=== PATIENT | male | born 1970 | race Caucasian/White ===

== ENCOUNTER 2018-01-12 10:14 | Inpatient (IN) ==
--- NOTE | 2018-01-11 22:10 | Discharge Summary ---
<Donita Correia - Last Filed: 01/12/18 14:26> Date of Encounter: 01/12/18 - Discharge Diagnosis (1) Status post total knee replacement, right Priority: Primary Status: Acute (2) Arthritis of knee, right Priority: Primary Status: Acute (3) Chronic pain Priority: Secondary Status: Chronic Comments: Continue chronic pain medication after surgery, RX printed for [facility] only Qualifiers: Chronic pain type: other chronic pain Qualified Code(s): G89.29 - Other chronic pain (4) HLD (hyperlipidemia) Priority: Secondary Status: Chronic Qualifiers: Hyperlipidemia type: mixed hyperlipidemia Qualified Code(s): E78.2 - Mixed hyperlipidemia (5) HTN (hypertension) Priority: Secondary Status: Chronic Qualifiers: Hypertension type: essential hypertension Qualified Code(s): I10 - Essential (primary) hypertension (6) Smoker Status: Chronic (7) Depression Priority: Secondary Status: Chronic Qualifiers: Depression Type: unspecified Qualified Code(s): F32.9 - Major depressive disorder, single episode, unspecified (8) History of DVT (deep vein thrombosis) Priority: Secondary Status: Chronic Comments: Placed on Lovenox. - Hospital Course Hospital course: Mr. Dalal is a 47 year old male - Time Spent with Patient Total time spent providing and/or coordinating discharge services: - Discharge Medications Home Medications: Canagliflozin [Invokana] 300 mg PO DAILY 01/12/18 [History] Enoxaparin [Lovenox] 30 mg SQ Q12HR 10 Days #20 syringe 01/12/18 [Rx] Insulin Glargine,Hum.rec.anlog [Basaglar Kwikpen U-100] 20 unit SQ HS 01/12/18 [History] Lisinopril [Zestril] 5 mg PO DAILY 01/12/18 [History] Metformin HCl [Glucophage] 1,000 mg PO BID 01/12/18 [History] OxyCODONE/APAP 10/325 [Percocet 10/325 MG] 1 tab PO Q6H PRN 01/12/18 [History] Pravastatin Sodium [Pravachol] 80 mg PO QAM 01/12/18 [History] Allergies/Adverse Reactions: Allergy/AdvReac Type Severity Reaction Status Date / Time vancomycin AdvReac Fever Verified 01/12/18 10:36 Primary care physician: PCP NONE - Patient Status Disposition: Home Health Service Condition: Good - Discharge Instructions Instructions: Chronic Hypertension (DC) Follow Up With: Gregory Hung MD [Partnered Physician] - 02/11/18 4:35 pm Donita Correia PAC [Physician Supervisor [place]] - 01/22/18 9:30 am NONE,PCP [Primary Care Provider] - Additional Instructions: Discharge Instructions: Total Knee Replacement Please call [facility] ([phone]), your Primary Care Physician, or report to the Emergency Room if you have any of the following symptoms: Nausea, vomiting, fever greater that 101.5, swelling, chest pain, shortness of breath, increased pain/redness/drainage/odor for your incision site, numbness/tingling, or any other concerning symptoms. ACTIVITY:Weight-bearing as tolerated. You may progress off support (crutches or walker) as tolerated. Incentive Spirometer 10 times an hour. MEDICATIONS: Upon discharge resume your home medications. Take all the medications as prescribed. Take a stool softener if taking narcotic pain medications. Stool softeners are only effective if you drink enough fluids. Drink 6-8 glass of water or fluids a day, unless this is not allowed for another health problem. Despite using stool softeners, if you haven't had a bowel movement in 3 days, please switch to a gentle laxative. Gentle laxatives are sold over the counter. You should have a bowel movement within 24 hours, if not call the office. You will be discharged from the hospital with a prescription for pain medication. You are encouraged to decrease the use of narcotic pain medication as tolerated. Should you require a refill, please call the office. [facility] prescribes narcotic pain medication for only 4-6 weeks after surgery. If you require pain medication beyond this time period, you may be referred to your Primary Care Physician or to the Pain Clinic for further evaluation. Plan ahead for refills on pain medication as many narcotics either need to be picked up at the office or mailed. It is best to call 48-72 hours in advance of needing a prescription refill so you don't run out of medication. To help control the post-operative pain, you may take NSAIDs (Aleve,Advil, Motrin, Ibuprofen, Naprosyn) or Tylenol as prescribed on the bottle in addition to the pain medication. ANTICOAGULATION (blood thinners): Continue your Aspirin, Lovenox or Coumadin as prescribed to help prevent a blood clot in the leg or in the lungs. As long as your incision remains dry and you tolerate the NSAIDs (Aleve, Advil, Motrin, ibuprofen, naprosyn), it is OK to use the NSAIDS while you are taking your anticoagulation medication. Should your incision start to drain, stop the NSAID and contact our office. Common symptoms of blood clot in the legs include: localized pain, swelling, calf tenderness, redness or discoloration of the skin. Blood clot in the lung symptoms include: shortness of breath, rapid pulse, sweating, and chest pain that worsens with deep breathing, coughing up blood, lightheadedness, feelings of anxiety. If you experience any of these symptoms notify your physician immediately, go to the emergency room, or if having trouble breathing, call 911. WOUND CARE: Leave the dressing on for 7 to 10days. You may change the dressing if it becomes saturated greater than 50%. Do not get the dressing wet at anytime. Wash your hands with antibacterial soap, rinse and dry prior to any wound care. If you have elaina the visiting nurse or rehab facility can remove the stapes 10-14 days after surgery and place steri-strips across the wound. Leave the steri-strips in place until they fall off on their won. You may let water from the shower run on top of the steri-strips. If you do not have a visiting nurse or rehab facility, you will need to return to the office at 10-14 days for the elaina to be removed. If you have itching or redness around the dressing call the office. FOLLOW-UP: Please follow up with your surgeon in the orthopedic clinic in 4 weeks from the day of surgery. If you have elaina that need to be removed, you will need to come back to the office in 10-14 days from the day of surgery. <Elvira Recio - Last Filed: 01/14/18 21:21> Orders not resulted at time of discharge: Pending orders 01/12/18 08:12 US anesthesia pain block [US] Routine Date of Encounter: 01/14/18 Time of Encounter: 12:15 - Discharge Diagnosis (1) Status post total knee replacement, right Priority: Primary Status: Acute (2) Arthritis of knee, right Priority: Primary Status: Acute (3) Chronic pain Priority: Secondary Status: Chronic Qualifiers: Chronic pain type: other chronic pain Qualified Code(s): G89.29 - Other chronic pain (4) Depression Priority: Secondary Status: Chronic Qualifiers: Depression Type: unspecified Qualified Code(s): F32.9 - Major depressive disorder, single episode, unspecified (5) HLD (hyperlipidemia) Priority: Secondary Status: Chronic Qualifiers: Hyperlipidemia type: mixed hyperlipidemia Qualified Code(s): E78.2 - Mixed hyperlipidemia (6) HTN (hypertension) Priority: Secondary Status: Chronic Qualifiers: Hypertension type: essential hypertension Qualified Code(s): I10 - Essential (primary) hypertension (7) History of DVT (deep vein thrombosis) Priority: Secondary Status: Chronic (8) Smoker Priority: Secondary Status: Chronic - Hospital Course Hospital course: Mr. Dalal is a 47 year old male is status post right TKR robotic 01/12/18 with hostory of HTN, HLD, depression, tobacco use, chronic pain and history of DVTs. Patient did have cramping to right leg day after surgery but this improved with muscle relaxers and therapy exercises. Due to his severe cramps he was noted to have calf pain. Doppler was negative for DVT. He has been placed on lovenox prophylactically due to history of DVTs. He participated in therapy. He did run a max temp of 100.0 last night but patient states this was during the time his thermostat was found to be set to 82 and he was sweating, temperature normalized once this was fixed. He denies any new cough more than his typical due to smoking and denies chest pain or SOB. Stable for discharge. He will return to his chronic pain medication. Rx was printed to be used only if he went to ECF but therapy did determine he was safe enough to do home therapy so nursing made aware to shred this script. Patient seen at bedside. A&O x 3 Afebrile, vital signs stable. Dressing c/d/i with no visible erythema or drainage. Labs reviewed. H/H - 12.7/37.0 - stable, asymptomatic Pain control: adequate Participating in PT. All questions and concerns addressed. Educated on use of incentive spirometer. Encouraged ambulation and proper hydration. Patient educated on post-operative restrictions and post-operative care. Assessment and plan: Continue with postoperative care Discharge plan: Home health therapy, DC today - Time Spent with Patient Total time spent providing and/or coordinating discharge services: Date of admission: 01/12/18 15:40 Primary care physician: PCP NONE Consults: 01/12/18 15:44 Consult to Orthopedic Navigator [CONS] [CONS] Routine Consult to Physical Therapy [CONS] Routine Comment: Evaluate, develop and impliment POC Reason for Consult: post knee surgery Does patient have active BEDREST order?: No Is patient medically & hemodynamically stable?: Yes Consult to Research Scientist [CONS] Routine Reason for SW Consult: post op joint replacement RT Post Op Consult [CONS] Routine Discharging clinician: Gregory Hung Anticipated date of discharge: 01/14/18 Labs on day of discharge: Labs from last 24 hours 01/14/18 01/14/18 01/14/18 11:33 06:52 05:36 Hgb Hct Sodium 137 Potassium 4.3 Chloride 104 Carbon Dioxide 24 BUN 16 Creatinine 0.56 L Est GFR ( Amer) > 60 Est GFR (Non-Af Amer) > 60 BUN/Creatinine Ratio 29 H Glucose 148 H POC Glucose 140 H 157 H Calculated Osmolality 288 Calcium 8.8 01/14/18 01/13/18 01/13/18 05:36 19:21 16:06 Hgb 12.7 L Hct 37.0 L Sodium Potassium Chloride Carbon Dioxide BUN Creatinine Est GFR ( Amer) Est GFR (Non-Af Amer) BUN/Creatinine Ratio Glucose POC Glucose 201 H 130 H Calculated Osmolality Calcium - Impressions ITS Impressions Knee X-Ray 01/12/18 00:01 IMPRESSION: 1. Right knee arthroplasty. No radiographic evidence of complication. D/ / Wu Real MD / Wu Real MD Interpreting Provider: Wu Real MD - Patient Status Overall status at discharge: patient is back to baseline - Diet and Activity Activity: as per physical therapy Diet: advance to your usual diet
--- NOTE | 2018-01-11 22:17 | Physician Discharge Referral ---
- Transfer Medications Prescriptions: Aspirin Enteric Coated [Aspirin EC] 325 mg PO BID #20 tablet. Oxycodone HCl/Acetaminophen [Endocet 10-325 mg Tablet] 1 each PO Q6H 5 Days #20 tablet Home Medications: Canagliflozin [Invokana] 100 mg PO DAILY 01/19/15 [History] Erythromycin OPTH Oint 1 appl RIGHT EYE ONCE 01/19/15 [History] Lansoprazole [Prevacid] 15 mg PO QAM 01/19/15 [History] Loratadine [Claritin] 10 mg PO DAILY 01/19/15 [History] Metformin [Glucophage] 1,000 mg PO BIDWM 01/19/15 [History] Cyclobenzaprine [Flexeril] 10 mg PO TID #20 tablet 03/17/15 [Rx] Naproxen [Naprosyn] 500 mg PO BID PRN #30 tablet 12/15/15 [Rx] Aspirin Enteric Coated [Aspirin EC] 325 mg PO BID #20 tablet. 01/11/18 [Rx] Oxycodone HCl/Acetaminophen [Endocet 10-325 mg Tablet] 1 each PO Q6H 5 Days #20 tablet 01/11/18 [Rx] Allergies/Adverse Reactions: Allergy/AdvReac Type Severity Reaction Status Date / Time vancomycin Allergy Fever Verified 01/05/18 09:59 - Respiratory Orders Smoking Cessation: Smoking cessation has been advised. For more information, call the [place] Tobacco Quit Line at 9-635-OPHD-NOW. CERTIFICATION: I certify that the transfer of the above named patient to an Extended Care Facility is necessary for the continuing treatment of the diagnosis listed. The above information is true and accurate reflection of patient's current condition. Confidential - Redisclosure prohibited without a patient's written consent.
--- NOTE | 2018-01-12 08:53 | Anesthesia Evaluation PreOp ---
Date of Encounter: 01/12/18 Time of Encounter: 10:41 - Past History Planned Operation: RIGHT TKA - ROBOTIC Cardiac History: Hyperlipidemia Pulmonary History: Smoker (~2 PPD) DIET TECH History: Other (DEPRESSION, ANXIETY) Other Medical History: Diabetes Type II Anesthesia History: No Prior Anesthetic Complications, Past Anesthesia Alcohol Use: none Drug use: none Medications and Allergies Aspirin Enteric Coated [Aspirin EC] 325 mg PO BID #20 tablet.dr 01/11/18 [Rx] Oxycodone HCl/Acetaminophen [Endocet 10-325 mg Tablet] 1 each PO Q6H 5 Days #20 tablet 01/11/18 [Rx] 3 Allergy/AdvReac Type Severity Reaction Status Date / Time vancomycin AdvReac Fever Verified 01/12/18 10:36 - Meds/Allergy Pre-op Review Medications Reviewed: Yes (LISINOPRIL FOR RENAL PROTECTION) Allergies Reviewed: Yes Beta Blockers on Current Med List: No Anesthesia Results - Labs Laboratory Last Values WBC 12.5 K/mcL (4.3-11.1) H 01/05/18 10:10 RBC 5.41 M/mcL (4.19-5.50) 01/05/18 10:10 Hgb 16.9 g/dL (12.9-16.9) 01/05/18 10:10 Hct 51.7 % (37.5-50.1) H 01/05/18 10:10 MCV 95.6 fL (83.0-100.0) 01/05/18 10:10 MCH 31.2 pg (28.0-33.3) 01/05/18 10:10 MCHC 32.7 g/dL (31.6-35.5) 01/05/18 10:10 RDW 13.3 % (11.5-14.5) 01/05/18 10:10 Plt Count 180 K/mcL (140-400) 01/05/18 10:10 MPV 10.9 fL (9.4-12.4) 01/05/18 10:10 Immature Gran % 0.3 % (0-4) 01/05/18 10:10 Seg Neutrophils % 46.9 % 01/05/18 10:10 Lymphocytes % 43.7 % 01/05/18 10:10 Monocytes % 7.4 % 01/05/18 10:10 Eosinophils % 1.5 % 01/05/18 10:10 Basophils % 0.2 % 01/05/18 10:10 Neutrophils # 5.9 K/mcL (1.6-8.9) 01/05/18 10:10 Lymphocytes # 5.5 K/mcL (0.6-4.6) H 01/05/18 10:10 Monocytes # 0.9 K/mcL (0.0-1.3) 01/05/18 10:10 Eosinophils # 0.2 K/mcL (0.0-0.6) 01/05/18 10:10 Basophils # 0.0 K/mcL (0.0-0.2) 01/05/18 10:10 Platelet Estimate Slight Decrease (Normal) L 01/05/18 10:10 APTT 32.6 Seconds (26.0-36.0) 01/05/18 10:10 Sodium 134 mEq/L (136-145) L 01/05/18 10:10 Potassium 4.6 mEq/L (3.5-5.1) 01/05/18 10:10 Chloride 104 mEq/L (98-107) 01/05/18 10:10 Carbon Dioxide 23 mEq/L (23-29) 01/05/18 10:10 BUN 17 mg/dL (6-20) 01/05/18 10:10 Creatinine 0.70 mg/dL (0.70-1.30) 01/05/18 10:10 Est GFR ( Amer) > 60 (> 60) 01/05/18 10:10 Est GFR (Non-Af Amer) > 60 (> 60) 01/05/18 10:10 BUN/Creatinine Ratio 24 (6-26) 01/05/18 10:10 Est Mean Plasma Glucose 186 mg/dl 01/05/18 10:10 Hemoglobin A1c 8.1 % (-5.6) H 01/05/18 10:10 Anesthesia Exam O2 Sat Height 1.7 m Height 1.7 m Weight 83.007 kg Weight 83.007 kg O2 Sat by Pulse Oximetry 98 Vital Signs/O2 Sat/Glucose, Most Recent Temp Pulse Resp BP Pulse Ox 98.4 F 73 18 133/84 98 01/12/18 10:33 01/12/18 10:33 01/12/18 10:33 01/12/18 10:33 01/12/18 10:33 Blood Glucose* 138 NPO (# of Hours): 8 - HEENT Mallampati: I Teeth: Normal Oral Opening: Greater than 3 - Cardiac Rhythm: Regular - Pulmonary Breath Sounds: bilateral Clear Respiratory Effort: Symmetrical Anesthesia Assess/Plan ASA Score: 3 Anesthetic Plan: General, Regional (FOR POST OPERATIVE PAIN) Monitoring Plan: Standard Monitors Recovery Plan: PACU Anes Supervising Prov Stmt: Meetup LIST NOT UPDATED THIS VISIT PATIENT'S CHART AND CURRENT MEDICATIONS REVIEWED CURRENT MEDICATIONS: Basaglar KwikPen 100 UNIT/ML Solution Pen-injector, Si units Subcutaneous once a day Percocet 10-325 MG Tablet, Si tablet as needed Orally every 6 hrs Invokana 300 MG Tablet, Si tablet Orally Once a day Lisinopril 5 MG Tablet, Si tablet Orally Once a day Metformin HCl 1000 MG Tablet, Si tablet with meals Orally Twice a day Pravastatin Sodium 80 MG Tablet 1 tablet Orally Once a day Patient informed and consented. Risks, benefits, and alternatives discussed. Patient wishes to proceed.
[2018-01-12] MEDS ORDERED: Albuterol 2.5 MG/3 ML NEBULIZER ONE (10:35)
[2018-01-12] MEDS ORDERED: CeFAZolin Syr 2,000MG/20 ML 2,000 MG/20 ML SYRINGE IVPB ONE (10:38)
[2018-01-12] MEDS ORDERED: Albuterol 2.5 MG/3 ML NEBULIZER IH ONE (10:38)
[2018-01-12] MEDS ORDERED: *HR* Methadone 10 MG TABLET PO ONE (10:44)
[2018-01-12] MEDS ORDERED: Acetaminophen IV 1,000 MG/100 ML INFUS..BTL IVPB ONE (10:44)
[2018-01-12] MEDS ORDERED: Pregabalin 75 MG CAPSULE PO ONE (10:44)
[2018-01-12] MEDS ORDERED: Ringers Solution, Lactated 1,000 ML IVC SCH ×2 (10:45→15:44)
[2018-01-12] MEDS ORDERED: Lidocaine -MPF 2% 2 ML VIAL ONE (10:58)
[2018-01-12] MEDS ORDERED: *HR* Propofol 200 MG/20 ML VIAL IVP ONE (10:58)
--- NOTE | 2018-01-12 11:19 | History & Physical Report ---
Date of Encounter: 01/12/18 Time of Encounter: 11:19 24 Hour HP Update - Instructions Instructions: If the History and Physical is less than 30 days old and was completed prior to A.M. admission and or procedure and has NOT been updated on calendar day of procedure please complete this update prior to performing procedure. - Update Patient reports changes in Medical Condition: No Changes in examination, assessment, or condition: No Changes in Medication: No Preop tests/diagnostics Reviewed: Yes Surgery Remains Indicated: Yes Consent for Planned Operative Procedure(s) Verified: Yes - Pre-Operative Checklist Preoperative Checklist Indicated: No Prophylactic Antibiotic Ordered: Yes Is VTE Prophylaxis Indicated?: Yes
[2018-01-12] MEDS ORDERED: Ondansetron 4 MG/2 ML VIAL ONE (11:34)
[2018-01-12] MEDS ORDERED: Dexamethasone 4 MG/ML VIAL ONE (11:34)
[2018-01-12] MEDS ORDERED: *HR* FentaNYL (PF) 100 MCG/2 ML VIAL ONE (12:08)
[2018-01-12] MEDS ORDERED: *HR* Midazolam HCl 5 MG/5 ML VIAL IVP ONE (12:08)
[2018-01-12] MEDS ORDERED: ROPIVACAINE HCL/PF 0.5% 30 ML VIAL ONE (12:08)
[2018-01-12] MEDS ORDERED: Bupivacaine/Clonidine Syringe 1 EACH SYRINGE ONE (12:09)
[2018-01-12] MEDS ORDERED: LIDOCAINE 1% PF 2 ML AMPUL ONE (12:18)
[2018-01-12] MEDS ORDERED: Ethanol\\Acetic Acid\\Na Ace\\Ben 1,000 ML IRRIG.SOLN IR ONE (12:24)
--- NOTE | 2018-01-12 12:43 | Anesthesia Procedures ---
Date of Encounter: 01/12/18 Time of Encounter: 12:41 Procedures: Anesthesia - Nerve Block Procedure Date: 01/12/18 Time: 12:41 Allergies/Adv Reactions: vancomycin Pre-op Diagnosis: R knee arthritis Surgical Procedure: R TKA Checklist: Correct Patient Identifier, Correct procedure, History checked Correct side: Right Blood Thinner: No Monitor Applied: EKG, BP, Pulse Oximetry Supplemental Oxygen via Nasal Cannula (L/min): 3 Sedation: Versed (mg): 5 Sedation: Fentanyl (mcg): 100 Indication: Post Op Analgesia (requested by Dr. Hung) Pre-op Neuro Deficits: No Block Type: Femoral, Other (iPACK) Catheter placed: No Sterile Technique: Yes Ultrasound used: Yes Anatomy identified: Yes Visual spread of Local: Yes Neuro Stimulation: Yes Nerve Stimulator Range: 0.2 - 0.4 mA Blood on Needle Aspiration: No Smooth Injection of Local: Yes Pain with Injection of Local: No Prep: Chlorhexadine Needle: 22 x 50 mm Stimuplex (for femoral n. block), 21 x 100 mm Stimuplex Local: 0.25% Bupivicaine w/Clonidine 20 mcg/cc (20mL for iPACK block), Ropivacaine (30mL of 0.5% + 4mg dexamethasone used for femoral n. block) Number of Attempts: 1 Complications: None/effective block Vitals: please see [facility]'s electronic records for VS entry Comments: successful on 1st attempt; patient tolerated procedure well; VSS
[2018-01-12] MEDS ORDERED: *HR* Midazolam HCl 2 MG/2 ML VIAL IVP PRN (12:45)
[2018-01-12] MEDS ORDERED: *HR* HYDROmorphone 2 MG TABLET PO PRN (12:45)
[2018-01-12] MEDS ORDERED: *HR* OxyCODONE Immed Rel 5 MG TABLET PO PRN (12:45)
[2018-01-12] MEDS ORDERED: *HR* PHENYLEPHRINE 1,000 MCG/10 ML SYRINGE IVP ONE (13:07)
[2018-01-12] MEDS ORDERED: EPHEDrine 50 MG/ML VIAL ONE (13:13)
[2018-01-12] MEDS ORDERED: Water for inj. (sterile) 10 ML IV ONE (13:13)
--- NOTE | 2018-01-12 13:59 | Orthopedic Operative Note ---
Date of procedure: 01/12/18 Pre-op diagnosis: Right knee arthritis Post-op diagnosis: same Procedure: Procedure: Right robotic-assisted Total knee replacement Estimated blood loss: 100 cc Hardware: Metal and polyethylene replacement. Press-fit Julian Femur: 4 Tibia: 5 PS insert:11 Patella: 39 Exam Under anesthesia: 2 degree flexion contracture 9 degrees varus as calculated by the robot full flexion and no instability Procedural Notes: Rate 3 arthritic changes all 3 compartments. Operative procedure: The patient was brought to the operating room and placed on the operating room table. After general anesthesia was administered the operative knee was examined. Findings were noted in the exam under anesthesia. The operative extremity was prepped and draped in sterile surgical fashion. The patient received IV antibiotics prior to skin incision. A standard midline incision was made centered over the patella. The incision was made through the skin and subcutaneous tissue. A medial parapatellar tendon approach was performed. Care was taken to preserve tissue along the medial aspect of the patella. And to protect the patella tendon. The deep MCL was released off the medial tibia. The infra patella fat pad was excised. The patella was everted and cut was made at the level of the insertion of the quadriceps and patella tendon. The patella was sized the guide was seated and the lug holes are drilled. Knee was brought into flexion. Patient noted to have grade 3 arthritic changes all 3 components. Steinmann pins were placed in the tibia and the femur for the tibial and femoral arrays respectively. Checkpoints were also placed in the tibia and the femur for calculation purposes. The knee including the femur and the tibial registered. Osteophytes, ACL and PCL were excised at this point. Extension and flexion were assessed with a valgus stress components were adjusted on the computer to balance the knee. Femoral cuts were made first with robotic assistance, these included the anterior cut posterior cuts chamfer cuts. Tibial cut was then performed with robotic assistance as well. Bone fragments were removed, as well as the medial and lateral meniscus. The size 4 femoral guide was seated box cut was made lug holes are drilled. The size 5 tibial tray was seated and prepared with the fin cutter. Trial reduction with the 11 PS Sahra revealed extension of 0 degree and 6 degree varus full flexion. No varus valgus instability. Trial reduction revealed excellent patella tracking. All trial components were removed all bony surfaces were irrigated. The Tibia was seated followed by the femur, The selected Sahra size was seated and secured patella. Patient had similar findings for motion and stability. The knee was closed by the PA. The knee was then irrigated out with 2 L of pulse irrigation. The extensor mechanism was closed with #2 FiberWire suture and #2 PDS suture. The subcutaneous tissue was then irrigated and closed deep with #1 PDS suture superficially with 0 PDS suture and skin was closed with zip tie The patient was then placed in a sterile dressing and a postoperative brace extubated and transferred to recovery room in stable condition. Anesthesia: GETA Surgeon: Gregory Hung Was there an restaurant assistant present: No Estimated blood loss (cc): 100 Condition: stable Disposition: PACU
[2018-01-12] MEDS: *HR* HYDROmorphone (PF) 1 MG/ML SYRINGE IVP PRN ×4 (14:30→15:05)
[2018-01-12 14:49] LABS: Hematocrit 45.8 % (37.5-50.1); Hemoglobin 15.3 g/dL (12.9-16.9)
[2018-01-12] MEDS ORDERED: Dextrose Gel 15 GM/37.5 ML TUBE PO PRN ×2 (15:44)
[2018-01-12] MEDS ORDERED: Temazepam 15 MG CAPSULE PO PRN (15:44)
[2018-01-12] MEDS ORDERED: Sennosides 8.6 MG TABLET PO PRN (15:44)
[2018-01-12] MEDS ORDERED: D5% in Water 1,000 ML IVC PRN (15:44)
[2018-01-12] MEDS ORDERED: traMADol 50 MG TABLET PO PRN (15:44)
[2018-01-12] MEDS ORDERED: Ondansetron 4 MG/2 ML VIAL IVP PRN (15:44)
[2018-01-12] MEDS ORDERED: *HR* Dextrose 50 % in Water (Syg) 50 ML SYRINGE IVP PRN (15:44)
[2018-01-12] MEDS ORDERED: Naloxone 0.4 MG/ML INJ IVP PRN (15:44)
[2018-01-12] MEDS ORDERED: MOM Conc 10 ML UD.LIQ PO PRN (15:44)
[2018-01-12] MEDS: *HR* OxyCODONE Immed Rel 5 MG TABLET PO PRN (17:06)
[2018-01-12] MEDS: *HR* Metformin 500 MG TABLET PO SCH (17:06)
[2018-01-12] MEDS: Insulin LISPRO 300 UNITS/3 ML VIAL SQ SCH ×2 (17:06→20:42)
[2018-01-12] MEDS: *HR* Enoxaparin 30 MG/0.3 ML SYRINGE SQ SCH (17:07)
--- NOTE | 2018-01-12 17:40 | Anesthesia Evaluation Post Op ---
Date of Encounter: 01/12/18 Time of Encounter: 15:12 - Discharge PostOp Status: Transfer Patient to floor (Patient's vital signs have been reviewed. Patient is stable postoperatively and has adequately recovered from anesthesia. Patient is determined to have stable airway patency and respiratory function including respiratory rate and oxygen saturation. Patient has a stable heart rate, blood pressure and adequate hydration. Patients mental status is acceptable. Patients temperature is appropriate. Pain and nausea are adequately controlled.)
[2018-01-12] MEDS ORDERED: *HR* Enoxaparin 30 MG/0.3 ML SYRINGE SQ SCH (18:00)
[2018-01-12] MEDS: Nicotine 21 MG PATCH.TD24 TD SCH (20:42)
[2018-01-12] MEDS: Insulin DETEMIR 100 UNIT/ML X5UNITS SQ SCH (20:42)
[2018-01-12] MEDS: *HR* OxyCODONE/APAP 5/325 TABLET PO PRN (22:12)
[2018-01-13] MEDS: *HR* OxyCODONE Immed Rel 5 MG TABLET PO PRN ×4 (03:30→20:10)
[2018-01-13] MEDS: *HR* Enoxaparin 30 MG/0.3 ML SYRINGE SQ SCH ×2 (05:20→18:08)
[2018-01-13 06:04] LABS: Hematocrit 39.8 % (37.5-50.1)
[2018-01-13 06:06] LABS: Hemoglobin 13.3 g/dL (12.9-16.9)
[2018-01-13 06:23] LABS: BUN/Creatinine Ratio 26 (6-26); Blood Urea Nitrogen 18 mg/dL (6-20); Calcium 8.7 mg/dL (8.6-10.3); Carbon Dioxide 23 mEq/L (23-29); Chloride 106 mEq/L (98-107); Glucose 269 mg/dL (70-105); Osmolality,Calculated 289 (280-300); Potassium 4.5 mEq/L (3.5-5.1); Sodium 134 mEq/L (136-145); eGFR For Non-African Americans > 60 (> 60)
--- NOTE | 2018-01-13 06:26 | Orthopedics Progress Note ---
Date of Encounter: 01/13/18 Time of Encounter: 06:25 Subjective Interval history: Patient was seen this morning doing well without complaints. Afebrile vital signs stable. Operative extremity: Neurovascularly intact Dressing clean dry and intact Calves nontender Assessment and plan: Continue with postoperative care Hematocrit 39 Objective Vital signs: Vital Signs Temp Pulse Resp BP Pulse Ox 01/13/18 04:55 98.5 F 79 18 108/73 94 01/12/18 23:40 97.9 F 68 19 134/56 96 01/12/18 21:40 97.9 F 80 18 99/60 94 01/12/18 21:37 95 01/12/18 19:40 97.8 F 83 18 98/63 98 01/12/18 18:54 97.9 F 82 18 99/64 95 01/12/18 18:18 97.6 F 82 16 112/67 95 01/12/18 17:16 97.4 F L 92 16 113/77 91 01/12/18 16:16 90 01/12/18 16:12 97.5 F L 78 14 116/77 90 01/12/18 15:55 97.7 F 85 16 129/82 97 01/12/18 15:26 98.0 F 73 16 102/65 94 01/12/18 15:16 98.0 F 74 16 107/65 95 01/12/18 15:06 75 16 117/80 93 01/12/18 14:56 90 16 118/67 94 01/12/18 14:46 98.1 F 85 16 120/81 91 01/12/18 14:36 82 16 115/74 92 01/12/18 14:26 75 14 131/88 93 01/12/18 14:16 97.0 F L 83 14 120/93 96 01/12/18 12:35 73 118/67 96 01/12/18 12:16 72 16 127/80 95 01/12/18 10:46 18 133/84 98 01/12/18 10:33 98.4 F 73 18 133/84 98 Intake and Output 01/12/18 01/12/18 01/13/18 15:59 23:59 07:59 Intake Total 220 / 220 2400 / 2400 300 / 300 Output Total 100 / 100 500 / 500 Balance 120 / 120 1900 / 1900 300 / 300 Intake: IV Fluids 220 / 220 100 / 100 100 / 100 Lactated Ringers 1,000 ML @ 25 200 / 200 mls/hr IVC .Q24H [facility] Rx#: [id number] Ancef Syringe 2,000 MG/20 ML 2, 20 / 20 000 mg In 20 ml @ 200 mls/hr IVPB PREOP ONE Rx#:[id number] Ancef 2,000 MG In 0.9 % Sodium 100 / 100 100 / 100 Chloride 100 ML @ 200 mls/hr IVPB Q8H [facility] Rx#:[id number] Oral 2300 / 2300 200 / 200 Output: Urine 500 / 500 Estimated Blood Loss 100 / 100 Other: Meal sandwich Percent of Meal Consumed 100% # Voids 1 1 Weight 83.007 kg 83.008 kg Blood Glucose* 129 329 - Labs CBC & BMP: 01/13/18 05:24 01/13/18 05:24 Labs: Abnormal lab results Sodium 134 mEq/L (136-145) L 01/13/18 05:24 Creatinine 0.68 mg/dL (0.70-1.30) L 01/13/18 05:24 Glucose 269 mg/dL (70-105) H 01/13/18 05:24 POC Glucose 161 mg/dL (70-99) H 01/12/18 16:19 Consult Discharge Plan - Plan Referrals: NONE,PCP [Primary Care Provider] -
[2018-01-13] MEDS: *HR* OxyCODONE/APAP 5/325 TABLET PO PRN (06:29)
[2018-01-13] MEDS: Nicotine 21 MG PATCH.TD24 TD SCH (08:46)
[2018-01-13] MEDS: *HR* Metformin 500 MG TABLET PO SCH ×2 (08:46→18:08)
[2018-01-13] MEDS: Insulin LISPRO 300 UNITS/3 ML VIAL SQ SCH ×4 (08:47→20:10)
[2018-01-13] MEDS: (Canagliflozin [Invokana] 300 MG) PO SCH (09:02)
[2018-01-13] MEDS: Insulin DETEMIR 100 UNIT/ML X5UNITS SQ SCH (20:10)
--- NOTE | 2018-01-13 20:40 | Event Note ---
Date of Encounter: 01/13/18 Time of Encounter: 12:15 PCR - POD#1 right TKR robotic 01/12/18 Patient seen at bedside. A&O x 3 He has complaint of significant cramping to right leg with little relief with muscle relaxer. He has been using a sheet to stretch foot and states he worked a little with therapy with no improvement. He does have moderate tenderness to palpation of calf and does have h/o DVT. Ordered doppler to rule out DVT and was negative. Afebrile, vital signs stable. Dressing c/d/i with no visible erythema or drainage. Labs reviewed. H/H - 13.3/39.8 - stable, asymptomatic Pain control: inadequate due to cramping pain. have added flexeril and toradol Participating in PT. All questions and concerns addressed. Educated on use of incentive spirometer. Encouraged ambulation and proper hydration. Patient educated on post-operative restrictions and post-operative care. Assessment and plan: Continue with postoperative care Discharge plan: Home health therapy tomorrow pending cramping/pain control.
--- NOTE | 2018-01-13 20:43 | Physician Discharge Referral ---
<Elvira Recio - Last Filed: 01/13/18 20:42> Home Health/Hosp Referral Info Attending Provider: Abhilash - Diagnosis (1) Status post total knee replacement, right Priority: Primary Status: Acute (2) Arthritis of knee, right Priority: Primary Status: Acute (3) Chronic pain Priority: Secondary Status: Chronic (4) Depression Priority: Secondary Status: Chronic (5) HLD (hyperlipidemia) Priority: Secondary Status: Chronic (6) HTN (hypertension) Priority: Secondary Status: Chronic (7) History of DVT (deep vein thrombosis) Priority: Secondary Status: Chronic (8) Smoker Priority: Secondary Status: Chronic - Respiratory Orders Smoking Cessation: Smoking cessation has been advised. For more information, call the [place] Tobacco Quit Line at 8-630-NEFX-NOW. - Diet/Nutrition Diet/Nutrition Orders: Regular - Activity Activity Orders: Ambulate, Chair - Services Needed Following services are medically necessary services: Nursing, Home Health Aide, Physical Therapy, Occupational Therapy Other Treatments: Opsite dressing, leave intact until first post-operative visit. If dressing becomes >50% saturated, contact office, remove dressing and place appropriate dressing in its place. Do not allow for dressing to get wet. Zipline/[place] in place, plan to remove at post-operative day #14-16. Total Joint Precautions x 6 weeks Apply cold therapy wrap 3-6x/day for 20 minutes at a time. Encourage ambulation throughout the day Use Incentive spirometer 10x/hour. Elevate affected extremity above heart as tolerated. Brace: Wear knee immobilizer at night x 2 weeks. - Transfer Medications Home Medications: Oxycodone HCl/Acetaminophen [Endocet 10-325 mg Tablet] 1 each PO Q6H 5 Days #20 tablet 01/11/18 [Rx] Canagliflozin [Invokana] 300 mg PO DAILY 01/12/18 [History] Enoxaparin [Lovenox] 30 mg SQ Q12HR 10 Days #20 syringe 01/12/18 [Rx] Insulin Glargine,Hum.rec.anlog [Basaglar Kwikpen U-100] 20 unit SQ HS 01/12/18 [ History] Lisinopril [Zestril] 5 mg PO DAILY 01/12/18 [History] Metformin HCl [Glucophage] 1,000 mg PO BID 01/12/18 [History] OxyCODONE/APAP 10/325 [Percocet 10/325 MG] 1 tab PO Q6H PRN 01/12/18 [History] Pravastatin Sodium [Pravachol] 80 mg PO QAM 01/12/18 [History] Allergies/Adverse Reactions: 3 Allergy/AdvReac Type Severity Reaction Status Date / Time vancomycin AdvReac Fever Verified 01/12/18 10:36 Certification: Further, I certify that my clinical findings support that this patient is homebound (i.e. absences from home require considerable and taxing effort and are for medical reasons or yazidism services or infrequently or short duration when for other reasons) because: Homebound Reason: Post-surgery restriction and or conditions limit ability to leave home Attestation: My signature below is to certify that this patient is under my care and that I, or nurse practitioner, or a physician real estate legal assistant working with me, has a face-to- face encounter with this patient. <Gregory Hung - Last Filed: 01/14/18 06:40> - Respiratory Orders Smoking Cessation: Smoking cessation has been advised. For more information, call the [place] Tobacco Quit Line at 5-578-AXNW-NOW. Certification: Further, I certify that my clinical findings support that this patient is homebound (i.e. absences from home require considerable and taxing effort and are for medical reasons or yazidism services or infrequently or short duration when for other reasons) because: Attestation: My signature below is to certify that this patient is under my care and that I, or nurse practitioner, or a physician's real estate legal assistant working with me, has a face-to -face encounter with this patient.
[2018-01-14] MEDS: *HR* OxyCODONE Immed Rel 5 MG TABLET PO PRN ×3 (00:15→10:05)
[2018-01-14] MEDS: *HR* OxyCODONE/APAP 5/325 TABLET PO PRN (02:15)
[2018-01-14] MEDS: *HR* Enoxaparin 30 MG/0.3 ML SYRINGE SQ SCH (05:31)
[2018-01-14 05:54] LABS: Hemoglobin 12.7 g/dL (12.9-16.9)
[2018-01-14 06:11] LABS: BUN/Creatinine Ratio 29 (6-26); Blood Urea Nitrogen 16 mg/dL (6-20); Calcium 8.8 mg/dL (8.6-10.3); Carbon Dioxide 24 mEq/L (23-29); Chloride 104 mEq/L (98-107); Glucose 148 mg/dL (70-105); Osmolality,Calculated 288 (280-300); Potassium 4.3 mEq/L (3.5-5.1); Sodium 137 mEq/L (136-145); eGFR For Non-African Americans > 60 (> 60)
--- NOTE | 2018-01-14 06:41 | Orthopedics Progress Note ---
Date of Encounter: 01/14/18 Time of Encounter: 06:40 Subjective Interval history: Patient was seen this morning doing well without complaints. Afebrile vital signs stable. Operative extremity: Neurovascularly intact Dressing clean dry and intact Calves nontender Assessment and plan: Continue with postoperative care Hematocrit 37 discharged today Objective Vital signs: Vital Signs Temp Pulse Resp BP Pulse Ox 01/14/18 03:47 99.3 F 75 16 143/82 92 01/13/18 23:25 98.9 F 77 17 143/82 95 01/13/18 20:00 96 01/13/18 18:21 100.0 F H 84 18 143/78 96 01/13/18 16:00 99.7 F H 75 15 131/75 98 01/13/18 10:49 98.4 F 78 17 96 Intake and Output 01/13/18 01/13/18 01/14/18 15:59 23:59 07:59 Intake Total 840 / 840 Balance 840 / 840 Intake: Oral 840 / 840 Other: Meal Lunch Percent of Meal Consumed 100% # Voids 1 Blood Glucose* 188 201 - Labs CBC & BMP: 01/14/18 05:36 01/14/18 05:36 Labs: Abnormal lab results Hgb 12.7 g/dL (12.9-16.9) L 01/14/18 05:36 Hct 37.0 % (37.5-50.1) L 01/14/18 05:36 Creatinine 0.56 mg/dL (0.70-1.30) L 01/14/18 05:36 BUN/Creatinine Ratio 29 (6-26) H 01/14/18 05:36 Glucose 148 mg/dL (70-105) H 01/14/18 05:36 POC Glucose 188 mg/dL (70-99) H 01/13/18 10:52 Consult Discharge Plan - Plan Referrals: NONE,PCP [Primary Care Provider] -
[2018-01-14] MEDS: Insulin LISPRO 300 UNITS/3 ML VIAL SQ SCH ×2 (08:44→11:58)
[2018-01-14] MEDS: *HR* Metformin 500 MG TABLET PO SCH (08:45)
[2018-01-14] MEDS: Nicotine 21 MG PATCH.TD24 TD SCH (08:45)
[2018-01-14] MEDS: (Canagliflozin [Invokana] 300 MG) PO SCH (09:32)
[2018-01-14 11:34] VITALS: BP 127/83
== END 2018-01-14 13:53 | disposition home health service (06) | DRG 302 ==
LOC: SAMDAY 10:14 → 3NENU 15:40
PROVIDERS: ADMIT Orthopaedic Surgery; ATTEND Orthopaedic Surgery